=== PATIENT | female | born 1945 | race Caucasian/White ===

== ENCOUNTER 2016-12-24 20:40 | Emergency (ER) | payer OTHER ==
[~2016-12-24] VITALS: Ht 162.6 cm; Wt 68.0 kg
[2016-12-24 20:42] VITALS: Ht 162.6 cm; Wt 68.0 kg
[2016-12-24] MEDS ORDERED: KETOROLAC 30 MG INJ IM STA (21:55)
[2016-12-24] MEDS ORDERED: NAPR-260 PO (22:20)
[2016-12-24] MEDS ORDERED: ACET500C5 PO (22:20)
--- NOTE | 2016-12-24 22:24 | ERD ---
ER Documentation Chief Complaint Chief Complaint R hand pain after injecting hydrocortisone for arthritis today in clinic HPI This is a 71-year-old female who presents the emergency department today complaining of right thumb and index finger pain after having an injection of hydrocortisone earlier today at her director of orthopedics. States the pain is worse after the injection. Denies any fevers or chills, new trauma. ROS All systems reviewed and are negative except as per history of present illness. Medications Home Meds Active Scripts Acetaminophen* (Tylophen*) 500 Mg Capsule, 1 CAP PO Q6H Y for PAIN AND OR ELEVATED TEMP, #30 CAP Prov:ARGENTINA WATTERS PA-C 12/24/16 Naproxen* (Naprosyn*) 500 Mg Tablet, 500 MG PO BID Y for PAIN AND/OR INFLAMMATION, #30 TAB Prov:ARGENTINA WATETRS PA-C 12/24/16 Allergies Allergies: Coded Allergies: No Known Allergy (Unverified , 12/24/16) PMhx/Soc Hx Miscellaneous Medical Probl: Yes (arthritis) Hx Alcohol Use: No Hx Substance Use: No Hx Tobacco Use: No Smoking Status: Never smoker Physical Exam Vitals Vital Signs Date Time Temp Pulse Resp B/P Pulse Ox O2 Delivery O2 Flow Rate FiO2 12/24/16 20:42 98.2 98 30 162/89 98 Physical Exam Const: NAD Head: Atraumatic Eyes: Normal Conjunctiva ENT: Normal External Ears, Nose and Mouth. Neck: Full range of motion..~ No meningismus. Resp: Clear to auscultation bilaterally Cardio: Regular rate and rhythm, no murmurs Abd: Soft, non tender, non distended. Normal bowel sounds Skin: No petechiae or rashes MSK: Him with no obvious deformity. No effusion. No erythema or warmth. Decreased range of motion thumb and index finger secondary to pain. Pulses 2+. Distal neurovascularly intact. Neur: Awake and alert Psych: Normal Mood and Affect Results 24 hrs Current Medications Medications (Trade) Dose Ordered Sig/Jazlyn Route PRN Reason Start Time Stop Time Status Last Admin Dose Admin Ketorolac Tromethamine (Toradol) 30 mg ONCE STAT IM 12/24/16 21:55 12/24/16 21:56 DC 12/24/16 22:14 Procedures/MDM This is a 8-year-old male who presents emergency department today complaining of right thumb and index finger after having an injection of earlier today by her director of orthopedics Dr. Hyde for arthritis. Patient was continued to complain of pain. She has had no new trauma. She is afebrile and otherwise well-appearing. I do not feel that she requires imaging or laboratory workup at this time as patient did indicate that she did have x-rays done at the orthopedic clinic. Her symptoms at this time was consistent with pain likely acute on chronic. Suspicion for sepsis, septic joint, cellulitis, flexor tenosynovitis. Patient was given Toradol injection here in the emergency department. She is given a prescription for Naprosyn and Tylenol for home. She may follow back up with Dr. Hyde next week. I believe the patient is appropriate for outpatient management. At this time the patient is stable for discharge and outpatient management. Patient should follow up with their PCP in the next 1-2 days. They may return to the emergency department sooner for any persistent or worsening of symptoms. Patient understood and agreed with the plan. Departure Diagnosis: Primary Impression: Pain of hand Laterality: right Qualified Code: M79.641 - Pain of right hand Condition: Fair Patient Instructions: Pain Control (Child) Referrals: your orthopaedic Additional Instructions: Call your primary care doctor TOMORROW for an appointment during the next 1-2 days.See the doctor sooner or return here if your condition worsens before your appointment time. Make prabhu appointment for follow-up with your director of orthopedics. Take Naprosyn or Tylenol or Motrin for pain. Apply ice to painful area ARGENTINA WATTERS PA-C Dec 24, 2016 22:24
--- NOTE | 2016-12-24 22:24 | ERD ---
ER Documentation Chief Complaint Chief Complaint R hand pain after injecting hydrocortisone for arthritis today in clinic HPI This is a 71-year-old female who presents the emergency department today complaining of right thumb and index finger pain after having an injection of hydrocortisone earlier today at her cash control specialist. States the pain is worse after the injection. Denies any fevers or chills, new trauma. ROS All systems reviewed and are negative except as per history of present illness. Medications Home Meds Active Scripts Acetaminophen* (Tylophen*) 500 Mg Capsule, 1 CAP PO Q6H Y for PAIN AND OR ELEVATED TEMP, #30 CAP Prov:ARGENTINA WATTERS PA-C 12/24/16 Naproxen* (Naprosyn*) 500 Mg Tablet, 500 MG PO BID Y for PAIN AND/OR INFLAMMATION, #30 TAB Prov:ARGENTINA WATTERS PA-C 12/24/16 Allergies Allergies: Coded Allergies: No Known Allergy (Unverified , 12/24/16) PMhx/Soc Hx Miscellaneous Medical Probl: Yes (arthritis) Hx Alcohol Use: No Hx Substance Use: No Hx Tobacco Use: No Smoking Status: Never smoker Physical Exam Vitals Vital Signs Date Time Temp Pulse Resp B/P Pulse Ox O2 Delivery O2 Flow Rate FiO2 12/24/16 20:42 98.2 98 30 162/89 98 Physical Exam Const: NAD Head: Atraumatic Eyes: Normal Conjunctiva ENT: Normal External Ears, Nose and Mouth. Neck: Full range of motion..~ No meningismus. Resp: Clear to auscultation bilaterally Cardio: Regular rate and rhythm, no murmurs Abd: Soft, non tender, non distended. Normal bowel sounds Skin: No petechiae or rashes MSK: Him with no obvious deformity. No effusion. No erythema or warmth. Decreased range of motion thumb and index finger secondary to pain. Pulses 2+. Distal neurovascularly intact. Neur: Awake and alert Psych: Normal Mood and Affect Results 24 hrs Current Medications Medications (Trade) Dose Ordered Sig/Jazlyn Route PRN Reason Start Time Stop Time Status Last Admin Dose Admin Ketorolac Tromethamine (Toradol) 30 mg ONCE STAT IM 12/24/16 21:55 12/24/16 21:56 DC 12/24/16 22:14 Procedures/MDM This is a 8-year-old male who presents emergency department today complaining of right thumb and index finger after having an injection of earlier today by her cash control specialist Dr. Hyde for arthritis. Patient was continued to complain of pain. She has had no new trauma. She is afebrile and otherwise well-appearing. I do not feel that she requires imaging or laboratory workup at this time as patient did indicate that she did have x-rays done at the orthopedic clinic. Her symptoms at this time was consistent with pain likely acute on chronic. Suspicion for sepsis, septic joint, cellulitis, flexor tenosynovitis. Patient was given Toradol injection here in the emergency department. She is given a prescription for Naprosyn and Tylenol for home. She may follow back up with Dr. Hyde next week. I believe the patient is appropriate for outpatient management. At this time the patient is stable for discharge and outpatient management. Patient should follow up with their PCP in the next 1-2 days. They may return to the emergency department sooner for any persistent or worsening of symptoms. Patient understood and agreed with the plan. Departure Diagnosis: Primary Impression: Pain of hand Laterality: right Qualified Code: M79.641 - Pain of right hand Condition: Fair Patient Instructions: Pain Control (Child) Referrals: your orthopaedic Additional Instructions: Call your primary care doctor TOMORROW for an appointment during the next 1-2 days.See the doctor sooner or return here if your condition worsens before your appointment time. Make prabhu appointment for follow-up with your cash control specialist. Take Naprosyn or Tylenol or Motrin for pain. Apply ice to painful area ARGENTINA WATTERS PA-C Dec 24, 2016 22:24
[2016-12-24 22:26] VITALS: BP 157/79; PULSE 87; RESP 19; TEMP 98
== END 2016-12-24 22:26 | disposition home or self-care (01) ==
LOC: FTE 20:40
DX: M79.641 Pain in right hand (principal)
CPT/HCPCS: 96372; 99284; J1885

== ENCOUNTER 2018-04-21 02:20 | Emergency (ER) | payer OTHER ==
[~2018-04-21] VITALS: Ht 149.9 cm; Wt 68.0 kg
[~2018-04-21 02:20] MED LIST: ACET500C5 PO; NAPR-985 PO
[2018-04-21 02:28] VITALS: Ht 149.9 cm; Wt 68.0 kg
--- NOTE | 2018-04-21 02:47 | ERD ---
ER Documentation Chief Complaint Chief Complaint PT reports she had R knee sx today and pain meds are not helping HPI The patient is a 72-year-old female, presenting to the ER because of acute postoperative pain, unrelieved with Mchenry 10 mg. Had right knee meniscal surgery earlier today and discharged with Mchenry. She denies fever, chills, neck pain, chest pain, dyspnea, abdominal pain, vomiting. She does not smoke nor drink Past medical/surgical history: None ROS All systems reviewed and are negative except as per history of present illness. Medications Home Meds Active Scripts Oxycodone HCl/Acetaminophen (Percocet 5-325 mg Tablet) 1 Each Tablet, 1 EACH PO Q6, #5 TAB Prov:ZIGGY MARY MD 04/21/18 Reported Medications Hydrocodone/Acetaminophen (Mchenry 10-325 Tablet) 1 Each Tablet, 1 EACH PO, TAB 04/21/18 Discontinued Scripts Acetaminophen* (Tylophen*) 500 Mg Capsule, 1 CAP PO Q6H PRN for PAIN AND OR ELEVATED TEMP, #30 CAP Prov:ARGENTINA WATTERS PA-C 12/24/16 Naproxen* (Naprosyn*) 500 Mg Tablet, 500 MG PO BID PRN for PAIN AND/OR INFLAMMATION, #30 TAB Prov:ARGENTINA WATTERS PA-C 12/24/16 Allergies Allergies: Coded Allergies: No Known Allergy (Unverified , 04/21/18) PMhx/Soc Hx Miscellaneous Medical Probl: Yes (arthritis) Hx Alcohol Use: No Hx Substance Use: No Hx Tobacco Use: No Physical Exam Vitals Vital Signs Date Temp Pulse Resp B/P (MAP) Pulse Ox O2 O2 Flow FiO2 Time Delivery Rate 04/21/18 98.0 87 18 141/63 95 Room Air 03:50 (89) 04/21/18 97.9 89 20 174/96 97 02:28 (122) Physical Exam Const: No acute distress. Head: Atraumatic. Eyes: Normal Conjunctiva. ENT: Normal External Ears, Nose and Mouth. Neck: Full range of motion. No meningismus. Resp: Clear to auscultation bilaterally. Cardio: Regular rate and rhythm. Abd: Soft, non distended, normal bowel sounds, non tender. Skin: No petechiae or rashes. Back: No midline or flank tenderness. Ext: Right knee incision is healing well, no erythema, no calf tenderness Neur: Awake and alert. No focal deficit Psych: Normal Mood and Affect. Results 24 hrs Current Medications Medications Dose Sig/Jazlyn Start Time Status Last (Trade) Ordered Route PRN Stop Time Admin Dose Reason Admin Morphine 4 mg ONCE STAT 04/21/18 DC 04/21/18 Sulfate IV 02:55 03:05 (morphine) 04/21/18 02:56 Ondansetron 4 mg ONCE STAT 04/21/18 DC 04/21/18 HCl (Zofran IV 02:55 03:05 Inj) 04/21/18 02:56 Procedures/MDM MEDICAL MAKING DECISION: The patient is a 72-year-old female, presenting with acute postoperative pain, was treated with morphine 4 mg IV for pain, Zofran 4 mg IV for nausea with good response, is stable for outpatient follow-up The differential diagnoses considered include but are not limited to cellulitis, abscess, seroma, DVT Departure Diagnosis: Primary Impression: Postoperative pain Condition: Good Comments She requested different pain medication, I discharged her with 5 tablets of Percocet The patient's blood pressure was elevated (>120/80) but appears stable without evidence of hypertension emergency or urgency. The patient was counseled about the risks of hypertension and urged to pursue outpatient monitoring and therapy within a week with their primary care physician. I discussed the findings with the patient. I advised the patient to follow-up with the primary physician in about 2-3 days, sooner if needed and return if any concern. Disclaimer: Inadvertent spelling and grammatical errors are likely due to EHR/ dictation software use and do not reflect on the overall quality of patient care. Also, please note that the electronic time recorded on this note does not necessarily reflect the actual time of the patient encounter. ZIGGY MARY MD Apr 21, 2018 02:47
[2018-04-21] MEDS ORDERED: morphine 4 MG/ML VIAL IV STA (02:55)
[2018-04-21] MEDS ORDERED: ONDANSETRON 4 MG INJ IV STA (02:55)
[2018-04-21] MEDS ORDERED: HYDR-3980 PO (03:37)
[2018-04-21 03:50] VITALS: BP 141/63; PULSE 87; RESP 18
[2018-04-21] MEDS ORDERED: OXYC-279 PO (04:38)
== END 2018-04-21 04:30 | disposition home or self-care (01) ==
LOC: E/R 02:20
DX: G89.18 Other acute postprocedural pain (principal); R40.2142 Coma scale, eyes open, spontaneous, at arrival to emergency department; R40.2362 Coma scale, best motor response, obeys commands, at arrival to emergency department; R40.2252 Coma scale, best verbal response, oriented, at arrival to emergency department
CPT/HCPCS: 96374; 96375; 99284; J2270; J2405